=== PATIENT | female | born 1980 | race Hispanic/Latino ===

== ENCOUNTER 2016-04-30 15:20 | Emergency (ER) | payer SELFPAY ==
[2016-04-30 16:18] VITALS: BP 119/74
--- NOTE | 2016-04-30 16:30 | Emergency Department Report ---
Chief Complaint: Abdominal Pain Stated Complaint: BACK PAIN/BLOOD IN URINE Time Seen by Provider: 04/30/16 16:25 - HPI History of Present Illness: 36-year-old female presents with lower abdominal pain and blood in urine 2 days. Past for increased urinary frequency times one week. Positive for nausea and dizziness. Asked if her vaginal bleeding and states she is currently on her cycle. Denies vaginal discharge, shortness of breath, chest pain. - ROS Review of Systems: Per HPI - Exam Vital Signs: Vital Signs 04/30/16 16:12 Temperature 98.7 F Pulse Rate 79 Respiratory 16 Rate Blood Pressure 119/74 O2 Sat by Pulse 100 Oximetry Physical Exam: General: 36-year-old female in no acute distress. Well-developed, well- nourished. CV: Regular rate and rhythm. Lungs: Clear to auscultation bilaterally. Abdomen: Tenderness to palpation of suprapubic region. No guarding or rebound tenderness. Positive for bilateral CVA tenderness. MSE screening note: Focused history and physical exam performed. Due to findings the following was ordered: ED Disposition for MSE Condition: Stable Instructions: Abdominal Pain (ED)
[2016-04-30 17:10] LABS: Basophils % (Auto) 0.2 % (0.0-1.8); Eosinophils % (Auto) 1.2 % (0.0-4.3); Hemoglobin 14.1 gm/dl (10.1-14.3); Mean Corpuscular HGB Conc 34 % (30-34); Mean Corpuscular Hemoglobin 30 pg (28-32); Mean Corpuscular Volume 89 fl (79-97); Platelet Count 237 K/mm3 (140-440); Red Cell Distribution Width 13.1 % (13.2-15.2); White Blood Count 7.9 K/mm3 (4.5-11.0)
[2016-04-30 17:25] LABS: BUN/Creatinine Ratio 8.75; Blood Urea Nitrogen 7 mg/dL (7-17); Calcium 8.8 mg/dL (8.4-10.2); Carbon Dioxide 23 mmol/L (22-30); Chloride 101.5 mmol/L (98-107); Glucose 125 mg/dL (65-100); Lipase 25 units/L (13-60); Potassium 4.1 mmol/L (3.6-5.0); Sodium 138 mmol/L (137-145)
[2016-04-30 17:28] LABS: Anion Gap 18 mmol/L
[2016-04-30 19:18] LABS: Bacteria,Urine 1+ /HPF (Negative); Bilirubin,Urine NEG (Negative); Blood,Urine NEG (Negative); Ketones,Urine NEG (Negative); Leukocyte Esterase,Urine NEG (Negative); Mucus,Urine FEW /HPF; Nitrite,Urine NEG (Negative); Protein,Urine <15 mg/dL mg/dL (Negative); RBC,Urine < 1.0 /HPF (0.0-6.0); Urobilinogen,Urine < 2.0 mg/dL (<2.0); WBC,Urine < 1.0 /HPF (0.0-6.0)
[2016-05-01] MEDS ORDERED: NACL 0.9% 1000 ML 1,000 ML IV ONE (00:35)
[2016-05-01] MEDS ORDERED: MORPHINE IV ONE (00:35)
[2016-05-01] MEDS ORDERED: TORADOL IV ONE (00:35)
--- NOTE | 2016-05-01 00:37 | Emergency Department Report ---
ED General Adult HPI - General Chief complaint: Abdominal Pain Stated complaint: BACK PAIN/BLOOD IN URINE Time Seen by Provider: 04/30/16 16:25 Source: patient, RN notes reviewed Mode of arrival: Ambulatory Limitations: No Limitations - History of Present Illness Initial comments: This is a 36-year-old female, previously unknown to me. She currently does not have a primary care doctor. Reports a history of cholecystectomy a few years ago. She reports irregular menstruation. Patient presents to the ER with atraumatic right lower back pain, hematuria, and mild suprapubic and right lower quadrant abdominal pain. Symptoms have been present for the past 2 days. Positive urinary frequency. Positive nausea. Positive vaginal bleeding. No shortness of breath or chest pain. Symptoms are intermittent. Increased with palpation, decreased with rest. No extremity weakness. No extremity numbness. -: Gradual Location: back, abdomen Quality: aching Consistency: intermittent Improves with: rest Worsens with: movement Associated Symptoms: loss of appetite. denies: confusion, chest pain, cough, diaphoresis, fever/chills - Related Data Previous Rx's Medication Instructions Recorded Last Taken Type Doxycycline [Vibramycin CAP] 100 mg PO Q12H #20 capsule 04/12/14 Unknown Rx Ketorolac [Toradol] 10 mg PO Q6H PRN #20 tablet 05/01/16 Unknown Rx Allergies Allergy/AdvReac Type Severity Reaction Status Date / Time No Known Allergies Allergy Unverified 04/12/14 09:18 ED Review of Systems ROS: Stated complaint: BACK PAIN/BLOOD IN URINE Other details as noted in HPI Constitutional: malaise Eyes: denies: eye discharge ENT: denies: epistaxis Respiratory: denies: cough Cardiovascular: denies: chest pain Gastrointestinal: abdominal pain Genitourinary: hematuria Musculoskeletal: back pain Skin: denies: lesions Neurological: denies: headache Psychiatric: anxiety ED Past Medical Hx - Surgical History Hx Cholecystectomy: Yes - Social History Smoking Status: Current Every Day Smoker Substance Use Type: None - Medications Home Medications: Home Medications Medication Instructions Recorded Confirmed Last Taken Type Doxycycline [Vibramycin CAP] 100 mg PO Q12H #20 capsule 04/12/14 Unknown Rx Ketorolac [Toradol] 10 mg PO Q6H PRN #20 tablet 05/01/16 Unknown Rx ED Physical Exam - General Limitations: No Limitations General appearance: alert, in no apparent distress, obese - Head Head exam: Present: atraumatic, normocephalic - Eye Eye exam: Present: normal appearance, EOMI - ENT ENT exam: Present: normal exam, normal orophraynx, mucous membranes moist - Neck Neck exam: Present: normal inspection, full ROM. Absent: tenderness, meningismus - Respiratory Respiratory exam: Present: normal lung sounds bilaterally. Absent: respiratory distress, wheezes, rales, rhonchi, stridor, chest wall tenderness - Cardiovascular Cardiovascular Exam: Present: regular rate, normal rhythm, normal heart sounds. Absent: bradycardia, tachycardia, irregular rhythm, systolic murmur, diastolic murmur, rubs, gallop - GI/Abdominal GI/Abdominal exam: Present: soft, tenderness, normal bowel sounds, other (all suprapubic, right lower quadrant, right flank tenderness. There is no rebound, guarding or peritoneal signs.). Absent: distended, guarding, rebound, rigid, pulsatile mass - External exam: Present: normal external exam Speculum exam: Present: normal speculum exam, vaginal bleeding Bi-manual exam: Present: normal bi-manual exam, other (during the gynecologic exam, I am escorted by ER certified technician Nannette Kincaid). Absent: cervical motion tendernes, adnexal tenderness, adnexal mass, uterine enlargement, uterine tenderness - Extremities Exam Extremities exam: Present: normal inspection, full ROM, normal capillary refill. Absent: tenderness, pedal edema, joint swelling - Back Exam Back exam: Present: normal inspection, full ROM, CVA tenderness (R), paraspinal tenderness. Absent: tenderness - Neurological Exam Neurological exam: Present: alert, oriented X3, normal gait, other (Extraocular movements intact. Tongue midline. No facial droop. Facial sensation intact to light touch in the V1, V2, V3 distribution bilaterally. 5 and 5 strength in 4 extremities.. Sensation is intact to light touch in 4 extremities.). Absent : motor sensory deficit - Psychiatric Psychiatric exam: Present: normal affect, normal mood - Skin Skin exam: Present: warm, dry, intact, normal color. Absent: rash ED Course Vital Signs 04/30/16 05/01/16 05/01/16 16:12 00:44 01:13 Temperature 98.7 F 99.0 F 99.0 F Pulse Rate 79 76 Respiratory 16 20 Rate Blood Pressure 119/74 O2 Sat by Pulse 100 100 Oximetry 05/01/16 05/01/16 05/01/16 01:15 01:45 03:00 Temperature Pulse Rate Respiratory 20 20 18 Rate Blood Pressure O2 Sat by Pulse 100 Oximetry - Reevaluation(s) Reevaluation #1: 05/01/16 02:16 Differential diagnosis: Gynecologic malignancy, renal colic, appendicitis, abscess, urinary tract infection Assessment and plan: 36-year-old female with hematuria, vaginal bleeding, back pain and abdominal pain. Low-grade temperature orally, minimally tender. She is rather obese. Gynecologic exam is essentially benign. Clinically doubt pelvic inflammatory disease at this time. We will treat her symptomatically. CAT scan of abdomen and pelvis is pending. We will reassess once it has resulted. Reevaluation #2: 05/01/16 04:28 CAT scan of the abdomen and pelvis negative. Feels improved. Tolerating liquid feeds. Patient will be discharged. Return precautions are extensively reviewed. ED Medical Decision Making - Lab Data Result diagrams: 04/30/16 16:45 04/30/16 16:45 Vital Signs 04/30/16 05/01/16 05/01/16 16:12 00:44 01:13 Temperature 98.7 F 99.0 F 99.0 F Pulse Rate 79 76 Respiratory 16 20 Rate Blood Pressure 119/74 O2 Sat by Pulse 100 100 Oximetry Labs 04/30/16 04/30/16 04/30/16 16:45 16:45 16:45 WBC 7.9 RBC 4.70 Hgb 14.1 Hct 42.0 MCV 89 MCH 30 MCHC 34 RDW 13.1 L Plt Count 237 Lymph % (Auto) 28.7 [place] % (Auto) 5.4 Eos % (Auto) 1.2 Baso % (Auto) 0.2 Lymph # 2.3 [place] # 0.4 Eos # 0.1 Baso # 0.0 Seg Neutrophils % 64.5 Seg Neutrophils # 5.1 Sodium 138 Potassium 4.1 Chloride 101.5 Carbon Dioxide 23 Anion Gap 18 BUN 7 Creatinine 0.8 Estimated GFR > 60 BUN/Creatinine Ratio 8.75 Glucose 125 H Calcium 8.8 Amylase 39 Lipase 25 Urine Color Urine Turbidity Urine pH Ur Specific Freeman Urine Protein Urine Glucose (UA) Urine Ketones Urine Blood Urine Nitrite Urine Bilirubin Urine Urobilinogen Ur Leukocyte Esterase Urine WBC (Auto) Urine RBC (Auto) U Epithel Cells (Auto) Urine Bacteria (Auto) Urine Mucus Urine HCG, Qual 04/30/16 18:42 WBC RBC Hgb Hct MCV MCH MCHC RDW Plt Count Lymph % (Auto) [place] % (Auto) Eos % (Auto) Baso % (Auto) Lymph # [place] # Eos # Baso # Seg Neutrophils % Seg Neutrophils # Sodium Potassium Chloride Carbon Dioxide Anion Gap BUN Creatinine Estimated GFR BUN/Creatinine Ratio Glucose Calcium Amylase Lipase Urine Color Yellow Urine Turbidity Clear Urine pH 6.0 Ur Specific Freeman 1.011 Urine Protein <15 mg/dl Urine Glucose (UA) Neg Urine Ketones Neg Urine Blood Neg Urine Nitrite Neg Urine Bilirubin Neg Urine Urobilinogen < 2.0 Ur Leukocyte Esterase Neg Urine WBC (Auto) < 1.0 Urine RBC (Auto) < 1.0 U Epithel Cells (Auto) 3.0 Urine Bacteria (Auto) 1+ Urine Mucus Few Urine HCG, Qual Negative - Radiology Data Radiology results: report reviewed, image reviewed CAT scan of the abdomen and pelvis with IV contrast negative. The appendix is within normal limits. Critical care attestation.: If time is entered above; I have spent that time in minutes in the direct care of this critically ill patient, excluding procedure time. ED Disposition Clinical Impression: Vaginal bleeding, Abdominal pain Disposition: DISCHARGED TO HOME OR SELFCARE Is pt being admited?: No Does the pt Need Aspirin: No Condition: Stable Instructions: Abdominal Pain (ED), Dysfunctional Uterine Bleeding (ED) Additional Instructions: Laboratory studies today were unremarkable. CAT scan of abdomen and pelvis did not demonstrate any disease that would require emergent surgery or antibiotic therapy. Pain medication as directed. Follow-up with the primary care doctor or weblogic administrator within the next week. Dr. Cobb is a local weblogic administrator. Dr. Mora is a local weblogic administrator. Cultures were sent today, results will be available in the next 3-5 days. Have a primary care doctor or weblogic administrator contact medical records department to obtain culture results. Return to the ER right away with new pain, worsened pain, migration of pain, fevers or chills, nausea or vomiting, inability to tolerate liquid feeds. Prescriptions: Ketorolac [Toradol] 10 mg PO Q6H PRN #20 tablet PRN Reason: Pain Referrals: PRIMARY MD ENRIKE [Primary Care Provider] - 3-5 Days ROSALIND MORA MD [Staff Physician] - 3-5 Days MARITA COBB MD [Staff Physician] - 3-5 Days ABDIFATAH PARKER MD [Staff Physician] - 3-5 Days
[2016-05-01] MEDS ORDERED: NACL ONE (01:23)
--- NOTE | 2016-05-01 03:33 | Cat Scan Report ---
FINAL REPORT PROCEDURE: CT ABDOMEN PELVIS W CON TECHNIQUE: Computerized axial tomography of the abdomen and pelvis was performed after the IV injection of iodinated nonionic contrast. HISTORY: abd pain back pain COMPARISON: No prior studies are available for comparison. FINDINGS: Visualized lower thorax: No significant abnormality. Liver: Normal size and attenuation. Spleen: Normal size and attenuation. Gallbladder and biliary system: There has been a cholecystectomy. The bile ducts are normal in caliber.. Pancreas: Normal. Adrenals: Normal. Kidneys: There are no kidney stones. There is no hydronephrosis.. GI tract: There is no bowel obstruction, colitis or enteritis. The appendix is normal.. Lymph nodes and mesentery: Normal. Vasculature: Normal. Bladder: Normal. Reproductive organs: Uterus and ovaries are unremarkable.. Peritoneum: There is no ascites, free air, abscess or adenopathy.. Musculoskeletal structures: No significant abnormality. Other: None. IMPRESSION: There has been a cholecystectomy. The bile ducts are normal in caliber.. There are no kidney stones. There is no hydronephrosis.. There is no bowel obstruction, colitis or enteritis. The appendix is normal.. Uterus and ovaries are unremarkable.. There is no ascites, free air, abscess or adenopathy..
--- NOTE | 2016-05-01 03:34 | Admit Criteria Form ---
Admission Criteria Documentation: ABDOMINAL PAIN Clinical Indications for Admission to Inpatient Care (Place 'X' for any and all applicable criteria): Admission is indicated for ANY ONE of the following(1)(2)(3)(4)(5): [X ]I. Inpatient admission required rather than observation care (Also use Abdominal Pain: Observation Care, as appropriate) because of ANY ONE of the following: [ ]a) Severe pain requiring acute inpatient management [ X]b) Identification of etiology/finding that requires inpatient care (eg, aortic dissection, free air) [ ]c) Absent bowel sounds with complete ileus(6) [ ]d) Suspected toxic megacolon [ ]e) Severe electrolyte abnormalities requiring inpatient care [ ]f) High fever or infection requiring inpatient admission as indicated by ANY ONE of following(7)(8): [ ] i) Appropriate outpatient or observational care antimicrobial treatment unavailable, not effective, or not feasible [ ] ii) Documented bacteremia [ ] iii) Temperature > 104.9 degrees F (oral) [ ] iv) T >103.1 F (oral) or < 96.8 F(rectal) that does not respond to all emergency treatment measures [ ]g) Signs of intestinal obstruction [B] [ ]h) Hemodynamic instability [ ]i) IV fluid to replace significant ongoing losses (greater than 3 L/m2 per day) (12)(13) [ ]j) Percutaneous or open drainage (eg, abscess, biliary tract ) procedures [ ]k) Parenteral nutrition regimen that must be implemented on inpatient basis [ ]l) Other condition,treatment or monitoring requiring inpatient admission. [ ]II. Peritoneal signs present [ ]III. Surgery needed that cannot be performed on an ambulatory basis. [ ]IV. Evaluation requires patient to not eat or drink for extended period ( eg, more than 24 hours). [ ]V. Contraindications and/or Inappropriate clinical situations for Observational Care in patients with abdominal pain, when ANY ONE of the following is required: [ ]a) Thorough evaluation is required to prevent catastrophic events due to delays in diagnosing (e.g.Mesenteric ischemia) 1,3 [ ]b) Patient with severe pathology or with chronic symptoms unlikely to improve in the ED stay (3) [ ]. General contraindications and/or Inappropriate clinical situations for Observational Care in patients with abdominal pain, when ANY ONE of the following is required: [ ]a) Prediction of prolongation of LOS based on ANY ONE of the following may be considered as a contraindication for observational care 2, 3, 4, 5, 6, 7, 8, 9, 10, 11 [ ]i) Age > 65 yrs. [ ]ii) Patient arriving by ambulance [ ]iii) Patient with high acuity [ ]iv) Patient requiring vital sign monitoring [ ]v) Patient on IV medication [ ]b) Systolic blood pressures 180mmHg 3,12 [ ]c) Patient with altered mental status including delirium and other alteration of consciousness, (3) [ ]d) Patient whose discharge disposition will be to a prison home or rehabilitation home should not be managed in Emergency Department Observation Unit. CMS rule requires 3 days hospital stay before such placement.3,13 [ ]e) Patient with failure to thrive due to broad array of etiologies 3,16,17 [ ]f) Inability to ambulate 3,14 Extended stay beyond goal length of stay may be needed for(2)(3): [ ]a) Persistent abdominal pain with suspected intra-abdominal process [ ]b) Diagnosed condition requiring continued stay (e.g., pancreatitis, complicated diverticulitis) [ ]c) Surgery (e.g., colectomy) The original [facility] content created by [employer] has been revised. The portions of the content which have been revised are identified through the use of italic text or in bold, and [facility] has neither reviewed nor approved the modified material.All other unmodified content is copyright [employer]. Please see references footnoted in the original [facility] edition 2016 Admission Criteria Met: Pending
== END 2016-05-01 05:13 | disposition home or self-care (01) ==
LOC: ED 15:20
DX: N93.9 Abnormal uterine and vaginal bleeding, unspecified (principal); R10.31 Right lower quadrant pain; F17.200 Nicotine dependence, unspecified, uncomplicated
CPT/HCPCS: 36415; 74177; 80048; 81001; 81025; 82150; 83690; 85025; 87086; 87210; 87591; 96361; 96374; 96375; 99284; J1885; J2270; J7030; Q9967

== ENCOUNTER 2016-11-12 11:07 | Emergency (ER) | payer SELFPAY ==
[2016-11-12 11:27] VITALS: BP 142/82
[2016-11-12] MEDS ORDERED: MOTRIN PO ONE (13:28)
--- NOTE | 2016-11-12 14:05 | XRay Report ---
LEFT FOOT, 3 views: History: Left foot pain. The bony architecture is intact. Bony alignment is normal. No soft tissue abnormalities are seen. The joint spaces appear preserved. Moderate plantar spur is noted. IMPRESSION: Moderate plantar spur.
--- NOTE | 2016-11-12 18:42 | Emergency Department Report ---
Entered by JANNET LOWERY, acting as scribe for JANET TAYLOR NP. ED Lower Extremity HPI - General Chief Complaint: Extremity Injury, Lower Stated Complaint: PAIN/SWELLING IN LOWER LEG/FOOT Time Seen by Provider: 11/12/16 12:16 Source: patient Mode of arrival: Ambulatory Limitations: No Limitations - History of Present Illness Initial Comments: This is a 36 y/o female, nontoxic, well nourished in appearance, no acute signs of distress with no significant PMHx presents with c/o gradually intermittent left foot that began 1 month ago. Patient states she was bitten by a deer tick prior to onset of symptoms, and her pulled the tick off. Denies taking antibiotics after tick exposure. Notes the pain radiates up her left leg and states it feels like "pin pricks." Rates pain an 5/10 in severity, which she describes as aching in quality. But patient currently denies any pain. Aggravated with movement and weight bearing, and alleviated with immobilization and medication. Patient denies left foot/leg injury or trauma. Patient denies left foot swelling, joint redness, pus, calf pain, calf tendnerss, drainage, numbness, tingling, fever, chills, chest pain, SOB, HERNANDEZ or dizziness, calf pain, numbness, tingling. Patient also denies long car rides, recent travels, or recent hospital stays. Took OTC Aleve with some relief. Denies any recent travels. LMP 10/23/2016. NKDA. FINLEY Complaint: other (left lateral foot pain) Onset/Timin -: month(s) Injury: Foot: Left Type of Injury: unknown Place: home Severity: moderate Severity scale (0 -10): 5 Improves With: NSAID, immobilization Worsens With: weight bearing, movement Context: other (unknown) Associated Symptoms: ambulatory. denies: snap/pop sensation, swelling, numbness , tingling, unable to bear weight, able to partially bear weight Treatments Prior to Arrival: other (OTC Aleve) - Related Data Previous Rx's Medication Instructions Recorded Last Taken Type Doxycycline [Vibramycin CAP] 100 mg PO Q12H #20 capsule 04/12/14 Unknown Rx Ketorolac [Toradol] 10 mg PO Q6H PRN #20 tablet 05/01/16 Unknown Rx Amoxicillin/K Clav Tab [Augmentin 1 each PO Q12HR #14 tablet 11/12/16 Unknown Rx 500 MG TAB] Ibuprofen [Motrin 600 MG tab] 600 mg PO Q8H PRN #20 tablet 11/12/16 Unknown Rx Allergies Allergy/AdvReac Type Severity Reaction Status Date / Time No Known Allergies Allergy Unverified 04/12/14 09:18 ED Review of Systems Comment: All other systems reviewed and negative Constitutional: denies: chills, fever Eyes: denies: eye pain, eye discharge, vision change ENT: denies: ear pain, throat pain Respiratory: denies: cough, orthopnea, shortness of breath, SOB with exertion, SOB at rest, stridor, wheezing Cardiovascular: denies: chest pain, palpitations, dyspnea on exertion, orthopnea , edema, syncope, paroxysmal nocturnal dyspnea Endocrine: no symptoms reported Gastrointestinal: denies: abdominal pain, nausea, vomiting, diarrhea Genitourinary: denies: urgency, dysuria, discharge Musculoskeletal: myalgia (left lateral foot pain). denies: back pain, joint swelling, arthralgia Skin: denies: rash, lesions Neurological: denies: headache, weakness, numbness, paresthesias Psychiatric: denies: anxiety, depression Hematological/Lymphatic: denies: easy bleeding, easy bruising ED Past Medical Hx - Past Medical History Previous Medical History?: No - Surgical History Past Surgical History?: Yes Hx Cholecystectomy: Yes (2005) - Family History Family history: diabetes - Social History Smoking Status: Current Every Day Smoker Substance Use Type: Alcohol - Medications Home Medications: Home Medications Medication Instructions Recorded Confirmed Last Taken Type Doxycycline [Vibramycin CAP] 100 mg PO Q12H #20 capsule 04/12/14 Unknown Rx Ketorolac [Toradol] 10 mg PO Q6H PRN #20 tablet 05/01/16 Unknown Rx Amoxicillin/K Clav Tab [Augmentin 1 each PO Q12HR #14 tablet 11/12/16 Unknown Rx 500 MG TAB] Ibuprofen [Motrin 600 MG tab] 600 mg PO Q8H PRN #20 tablet 11/12/16 Unknown Rx ED Physical Exam - General Limitations: No Limitations General appearance: alert, in no apparent distress - Head Head exam: Present: atraumatic, normocephalic - Eye Eye exam: Present: normal appearance, PERRL, EOMI. Absent: scleral icterus, conjunctival injection, nystagmus, periorbital swelling, periorbital tenderness Pupils: Present: normal accommodation - ENT ENT exam: Present: normal exam, normal orophraynx, mucous membranes moist, TM's normal bilaterally, normal external ear exam - Neck Neck exam: Present: normal inspection, full ROM. Absent: tenderness, meningismus, lymphadenopathy, thyromegaly - Respiratory Respiratory exam: Present: normal lung sounds bilaterally. Absent: respiratory distress, wheezes, rales, rhonchi, stridor, chest wall tenderness, accessory muscle use, decreased breath sounds, prolonged expiratory - Cardiovascular Cardiovascular Exam: Present: regular rate, normal rhythm, normal heart sounds. Absent: bradycardia, tachycardia, irregular rhythm, systolic murmur, diastolic murmur, rubs, gallop - GI/Abdominal GI/Abdominal exam: Present: soft, normal bowel sounds. Absent: distended, tenderness, guarding, rebound, rigid, diminished bowel sounds - Rectal Rectal exam: Present: deferred - Extremities Exam Extremities exam: Present: normal inspection, full ROM, normal capillary refill. Absent: tenderness, pedal edema, joint swelling, calf tenderness - Expanded Lower Extremity Exam Left Hip exam: Present: normal inspection, full ROM. Absent: tenderness, swelling, abrasion, laceration, ecchymosis, deformity, crepidus, dislocation, erythema, external rotation, internal rotation, shortening, pelvic stability Upper Leg exam: Present: normal inspection, full ROM. Absent: tenderness, swelling, abrasion, laceration, ecchymosis, deformity, crepidus, dislocation, erythema Knee exam: Present: normal inspection, full ROM, full knee extension. Absent: tenderness, swelling, abrasion, laceration, ecchymosis, deformity, crepidus, dislocation, erythema, effusion, pain w/ pronation/supination, posterior draw sign, pain/laxity with valgus, pain/laxity with varus Lower Leg exam: Present: normal inspection, full ROM. Absent: tenderness, swelling, abrasion, laceration, ecchymosis, deformity, crepidus, dislocation, erythema, palpable cord, Genet's sign Ankle exam: Present: normal inspection, full ROM. Absent: tenderness, swelling , abrasion, laceration, ecchymosis, deformity, crepidus, dislocation, erythema, anterior draw sign Foot/Toe exam: Present: normal inspection, full ROM. Absent: tenderness, swelling, abrasion, laceration, ecchymosis, deformity, crepidus, dislocation, erythema, amputation, puncture wound, foreign body, calcaneal tenderness, tenderness at base of 5th metatarsal, nail avulsion, subungual hematoma Neuro vascular tendon exam: Present: no vascular compromise. Absent: pulse deficit, abnormal cap refill, motor deficit, sensory deficit, tendon deficit, extremity cold to touch, pallor, abnormal 2-point discrimination, decreased fine /light touch, foot drop, peroneal nerve deficit, significant pain with passive ROM of distal joint Gait: Positive: observed and normal - Back Exam Back exam: Present: normal inspection, full ROM. Absent: tenderness, CVA tenderness (R), CVA tenderness (L), muscle spasm, paraspinal tenderness, vertebral tenderness, rash noted - Neurological Exam Neurological exam: Present: alert, oriented X3, CN II-XII intact, normal gait, reflexes normal. Absent: abnormal gait, motor sensory deficit - Psychiatric Psychiatric exam: Present: normal affect, normal mood - Skin Skin exam: Present: warm, dry, intact. Absent: rash - Other Other exam information: Negative erythema migrans. ED Course Vital Signs 11/12/16 11:23 Temperature 98.6 F Pulse Rate 86 Respiratory 20 Rate Blood Pressure 142/82 O2 Sat by Pulse 99 Oximetry - Reevaluation(s) Reevaluation #1: 11/12/16 14:25 Patient is able to talk in full sentences with no signs of distress ED Lower Extremity MDM - Medical Decision Making Ed course: This is a 36-year-old female that presents with a tic bite and foot pain 1- patient was examined by myself. There are no signs or symptoms of infection. no pus no driange. No erythema migrans. No numbness or tingling present. 2- Patient stated she needs "antibiotics" to clear this problem. I instructed patient that antibiotics is not needed due to no signs of infection but patient still insisted to receive antibiotics. Patient will be treated empirically with Augmentin for 7 days. 3- Patient was instructed to follow-up with a primary care doctor in 3-5 days or if symptoms such as pus, drainage, swelling, numbness, tingling, fever, chills, headache, nasuea, vomiting, chest pain, or shortness of breathe to return to emergency room as soon as possible. 4- xray has been obtained with negative fx findings but a moderate plantar spur. Dictated by Dr. Lamas. Patient was notified of xray findings with no further questions noted by the patient. 5- Patient also received ibuprofen for symptom of discharge. Patient referred to Dr. Peace or another orthopedic doctor. ED Disposition Clinical Impression: Bone spur of left foot Arthralgia Qualifiers: Joint pain location: foot Laterality: left Qualified Code(s): M25.572 - Pain in left ankle and joints of left foot Disposition: DC-01 TO HOME OR SELFCARE Is pt being admited?: No Does the pt Need Aspirin: No Condition: Stable Instructions: Amoxicillin/Clavulanate Potassium (By mouth), Arthralgia (ED), Ibuprofen (By mouth) Additional Instructions: follow up with a primary care doctor in 3-5 days or if symptoms such as pus, drainage, swelling, numbness, tingling, fever, chills, headache, nasuea, vomiting, chest pain, or shortness of breathe to return to emergency room as soon as possible. Follow-up with Dr. Peace (orthopedic) for your plantar foot spur Take antibiotics and ibuprofen as prescribed. Prescriptions: Amoxicillin/K Clav Tab [Augmentin 500 MG TAB] 1 each PO Q12HR #14 tablet Ibuprofen [Motrin 600 MG tab] 600 mg PO Q8H PRN #20 tablet PRN Reason: Pain Referrals: PRIMARY CARE, [Primary Care Provider] - 3-5 Days JO ANN STEWART JR, MD [Staff Physician] - 3-5 Days [facility] [Outside] - 3-5 Days [facility] [Outside] - 3-5 Days This documentation as recorded by the SEBASTIÁN madrigal JASMINE,accurately reflects the service I personally performed and the decisions made by ,JANET TAYLOR, ETL ANALYST DEVELOPER.
== END 2016-11-12 14:53 | disposition home or self-care (01) ==
LOC: ED 11:07
DX: M77.52 Other enthesopathy of left foot and ankle (principal); F17.210 Nicotine dependence, cigarettes, uncomplicated
CPT/HCPCS: 99283